=== PATIENT | female | born 1955 | race Caucasian/White ===

== ENCOUNTER 2020-06-07 12:08 | Emergency (ER) | payer OTHER ==
[~2020-06-07 12:08] MED LIST: ASPIR 8181 MG PO; AUGMENTIN 875-1 EACH PO; B COMPLEX1 EACH SL; CARDIZEM CD120 MG PO; CBD OIL; FLONASE ALLER15.8 ML; HCTZ12.5 MG PO; LIDOCAINE 5% P1 EACH TD; LISINOPRIL10 MG PO; LOVASTATIN10 MG PO; LOVAZA1 GM PO; MEDROL 4MG DOSEP4 MG PO; NADOLOL 20MG TA20 MG PO; OXYCODONE-ACET1 EACH PO; REQUIP1 MG PO; SENNA PO; TRADJENTA5 MG PO; TRESIBA FL200 UNIT/1 SC; VITAMIN B-121000 MC1 PO; ZANTAC150 MG PO; ZOFRAN8 MG PO; ZYRTEC10 M3 PO
[2020-06-07] MEDS ORDERED: NORCO 5-325 TA1 EACH PO (13:22)
== END 2020-06-07 13:25 | disposition home or self-care (01) ==
LOC: FER 12:08
DX: S92.352A Displaced fracture of fifth metatarsal bone, left foot, initial encounter for closed fracture (principal); M25.572 Pain in left ankle and joints of left foot; R22.42 Localized swelling, mass and lump, left lower limb; E11.9 Type 2 diabetes mellitus without complications; I10 Essential (primary) hypertension; Z98.890 Other specified postprocedural states; Z88.7 Allergy status to serum and vaccine; X58.XXXA Exposure to other specified factors, initial encounter
CPT/HCPCS: 73610; 73620

== ENCOUNTER 2020-10-14 19:02 | Emergency (ER) | payer MEDICARE, OTHER ==
[~2020-10-14 19:02] MED LIST changes: +NORCO 5-325 TA1 EACH PO
== END 2020-10-14 20:45 | disposition home or self-care (01) ==
LOC: FER 19:02
DX: G89.29 Other chronic pain (principal); M54.9 Dorsalgia, unspecified; Z91.013 Allergy to seafood; Z79.891 Long term (current) use of opiate analgesic
CPT/HCPCS: 96372; 99283; J2270; J2550

== ENCOUNTER 2021-02-03 11:08 | Inpatient (IN) | payer MEDICARE, OTHER ==
[~2021-02-03] VITALS: Ht 154.9 cm; Wt 73.2 kg
[2021-02-03 12:31] LABS: BASOPHIL 0.4 % (0-2); EOSINOPHIL 0 % (0-7); HCT 46.1 % (37.0-47.0); HGB 14.8 g/dl (12.5-16.0); LYMPHOCYTE 26.9 % (15-48); MCH 30.5 pg (25.0-31.0); MCHC 32.1 g/dL (32.0-36.0); MCV 94.9 fL (78.0-100.0); MONOCYTE 6.7 % (0-12); NEUTROPHIL 65.6 % (41-80); NRBC 0; PLT 65 K/uL (150-400); RBC 4.86 M/uL (4.20-5.40); RDW 13.6 % (11.5-14.0); WBC 2.8 K/uL (4.0-10.5)
[2021-02-03 12:51] LABS: BILIRUBIN - TOTAL 1.2 mg/dL (0.2-1.0); BUN/CREAT RATIO (CALC) 14.6 RATIO; CREATININE 0.82 mg/dL (0.51-0.95); POTASSIUM 4.1 mmol/L (3.5-5.1)
[2021-02-03] MEDS ORDERED: LASIX20 MG PO (15:02)
[2021-02-03] MEDS ORDERED: PRILOSEC20 MG PO (15:04)
[2021-02-03] MEDS ORDERED: ALDACTONE50 MG PO (15:05)
[2021-02-03] MEDS ORDERED: PERCOCET 10-321 EACH PO (15:05)
[2021-02-03] MEDS ORDERED: CYCLOBENZAPRINE10 MG PO (15:06)
--- NOTE | 2021-02-04 04:44 | NUR ---
PT HAD 2 ORDERS FOR NORCO 5/325; ONE FOR #1 PER DOSE, THE SECOND FOR #2 TABS PER DOSE. THE #2 TABS FELL OFF MAR. DISPLAY FABRICATION SUPERVISOR STATES WOULD PREFER TO SEE HOW PT DOES ON #1 PER DOSE & SPEAK WITH ORIG ORDERING PHYSICIAN BEFORE CHANGING ORDER. PT AWARE.
[2021-02-04 07:02] LABS: BASOPHIL 0.5 % (0-2); EOSINOPHIL 0 % (0-7); HCT 43.8 % (37.0-47.0); HGB 14.3 g/dl (12.5-16.0); MCH 30.7 pg (25.0-31.0); MCHC 32.6 g/dL (32.0-36.0); MONOCYTE 7.4 % (0-12); MPV 11.2 fL (6.0-9.5); NEUTROPHIL 56.6 % (41-80); NRBC 0; PLT 63 K/uL (150-400); RBC 4.66 M/uL (4.20-5.40); RDW 13.5 % (11.5-14.0); WBC 2.2 K/uL (4.0-10.5)
[2021-02-04 07:45] LABS: BUN/CREAT RATIO (CALC) 23.1 RATIO; CREATININE 0.78 mg/dL (0.51-0.95); POTASSIUM 3.6 mmol/L (3.5-5.1)
[2021-02-05 06:21] LABS: BASOPHIL 0 % (0-2); EOSINOPHIL 0 % (0-7); HCT 43.1 % (37.0-47.0); HGB 14.2 g/dl (12.5-16.0); MCH 30.9 pg (25.0-31.0); MCHC 32.9 g/dL (32.0-36.0); MCV 93.9 fL (78.0-100.0); MONOCYTE 8.2 % (0-12); MPV 11.4 fL (6.0-9.5); NEUTROPHIL 69.1 % (41-80); NRBC 0; PLT 79 K/uL (150-400); RBC 4.59 M/uL (4.20-5.40); RDW 13.6 % (11.5-14.0)
[2021-02-05 06:34] LABS: WBC 5.3 K/uL (4.0-10.5)
[2021-02-05 06:35] LABS: LYMPHOCYTE 21.9 % (15-48)
[2021-02-05 06:38] LABS: ALBUMIN 2.5 g/dL (3.4-5.0); BUN/CREAT RATIO (CALC) 33.3 RATIO; CREATININE 0.75 mg/dL (0.51-0.95); GLOBULIN (CALCULATION) 4.5 g/dL; POTASSIUM 4.5 mmol/L (3.5-5.1)
--- NOTE | 2021-02-05 13:48 | NUR ---
02/05/21 Please monitor for 02 needs.
[2021-02-06 06:10] LABS: BASOPHIL 0 % (0-2); EOSINOPHIL 0 % (0-7); HCT 41.6 % (37.0-47.0); HGB 13.7 g/dl (12.5-16.0); LYMPHOCYTE 22.1 % (15-48); MCHC 32.9 g/dL (32.0-36.0); MCV 94.1 fL (78.0-100.0); MONOCYTE 7.4 % (0-12); MPV 11.4 fL (6.0-9.5); NEUTROPHIL 69.6 % (41-80); NRBC 0; RBC 4.42 M/uL (4.20-5.40); RDW 13.6 % (11.5-14.0); WBC 4.6 K/uL (4.0-10.5)
[2021-02-06 06:21] LABS: PLT 81 K/uL (150-400)
[2021-02-06 06:31] LABS: BUN/CREAT RATIO (CALC) 29.7 RATIO; CREATININE 0.91 mg/dL (0.51-0.95); POTASSIUM 4.3 mmol/L (3.5-5.1)
[2021-02-07 06:22] LABS: BASOPHIL 0 % (0-2); EOSINOPHIL 0 % (0-7); HCT 41.5 % (37.0-47.0); HGB 13.8 g/dl (12.5-16.0); LYMPHOCYTE 17.8 % (15-48); MCH 31.2 pg (25.0-31.0); MCHC 33.3 g/dL (32.0-36.0); MCV 93.7 fL (78.0-100.0); MONOCYTE 9.7 % (0-12); MPV 11.4 fL (6.0-9.5); NRBC 0; RBC 4.43 M/uL (4.20-5.40); RDW 13.5 % (11.5-14.0); WBC 3.7 K/uL (4.0-10.5)
[2021-02-07 06:23] LABS: PLT 69 K/uL (150-400)
[2021-02-07 06:39] LABS: ALBUMIN 2.5 g/dL (3.4-5.0); BILIRUBIN - TOTAL 0.6 mg/dL (0.2-1.0); BUN/CREAT RATIO (CALC) 27.4 RATIO; CREATININE 0.84 mg/dL (0.51-0.95); GLOBULIN (CALCULATION) 4.1 g/dL; POTASSIUM 4.4 mmol/L (3.5-5.1); TOTAL PROTEIN 6.6 g/dL (6.4-8.2)
[2021-02-08 07:06] LABS: BASOPHIL 0.2 % (0-2); EOSINOPHIL 0 % (0-7); HCT 43.3 % (37.0-47.0); HGB 14.3 g/dl (12.5-16.0); LYMPHOCYTE 13.3 % (15-48); MCV 93.9 fL (78.0-100.0); MONOCYTE 8.3 % (0-12); MPV 10.7 fL (6.0-9.5); NEUTROPHIL 77.5 % (41-80); NRBC 0; PLT 64 K/uL (150-400); RBC 4.61 M/uL (4.20-5.40); RDW 13.7 % (11.5-14.0); WBC 5.8 K/uL (4.0-10.5)
[2021-02-08 07:44] LABS: ALBUMIN 2.5 g/dL (3.4-5.0); BILIRUBIN - TOTAL 0.7 mg/dL (0.2-1.0); BUN/CREAT RATIO (CALC) 32.1 RATIO; CREATININE 0.81 mg/dL (0.51-0.95); GLOBULIN (CALCULATION) 4.3 g/dL; POTASSIUM 3.9 mmol/L (3.5-5.1); TOTAL PROTEIN 6.8 g/dL (6.4-8.2)
[2021-02-08] MEDS ORDERED: PHENERGAN12.5 M1 PO (15:08)
[2021-02-08] MEDS ORDERED: DEXAMETHASONE 2M2 MG PO (15:08)
== END 2021-02-08 16:56 | disposition home or self-care (01) | DRG 177 ==
LOC: FER 11:08 → FMS 12:48
PROVIDERS: Emergency Medicine; ADMIT Family Medicine
PROC: 8E0ZXY6 Isolation (ICD-10-PCS; principal; 2021-02-03)
PROC: XW033E5 Introduction of Remdesivir Anti-infective into Peripheral Vein, Percutaneous Approach, New Technology Group 5 (ICD-10-PCS; 2021-02-03)
DX: U07.1 COVID-19 (principal); J96.01 Acute respiratory failure with hypoxia; J12.82 Pneumonia due to coronavirus disease 2019; E11.9 Type 2 diabetes mellitus without complications; I10 Essential (primary) hypertension; E78.5 Hyperlipidemia, unspecified; D50.9 Iron deficiency anemia, unspecified; G89.4 Chronic pain syndrome; D69.6 Thrombocytopenia, unspecified; K59.03 Drug induced constipation; Z90.49 Acquired absence of other specified parts of digestive tract; Z83.3 Family history of diabetes mellitus; Z82.49 Family history of ischemic heart disease and other diseases of the circulatory system; Z98.51 Tubal ligation status; Z79.899 Other long term (current) drug therapy; Z91.013 Allergy to seafood
CPT/HCPCS: 36415; 36600; 71045; 80048; 80053; 82803; 82962; 83880; 85025; 94010; 97110; 97162; 97530-GP; C9399; J1100; J1650; J2550; J7050; J8540; U0002